=== PATIENT | male | born 1960 | race Caucasian/White ===

== ENCOUNTER 2023-06-29 12:56 | Outpatient (OUT) | payer MEDICARE, SELFPAY ==
[2023-06-29 13:38] LABS: Microalbumin Urine Random 2.3 mg/dL (<=30.0)
[2023-06-29 13:40] LABS: Estimated Average Glucose 171 mg/dL; Glycohemoglobin A1C 7.6 % (4.5-6.2)
[2023-06-29 13:55] LABS: Alanine Aminotransferase 35 U/L (16-63); Anion Gap 7.5; Calcium 9.4 mg/dL (8.5-10.1); Carbon Dioxide 33.1 mmol/L (21.0-32.0); Chloride 104 mmol/L (98-107); Chol HDL Ratio 2.4; Cholesterol 100 mg/dL (<=200); Estimated GFR (African America >60 (>=60); Estimated GFR (Non-African Ame >60 (>=60); Glucose 140 mg/dL (74-106); HDL Cholesterol 42 mg/dL (40-60); LDL Cholesterol Calculated 36.6 mg/dL; Potassium 4.6 mmol/L (3.5-5.1); Sodium 140 mmol/L (136-145); Triglycerides 107 mg/dL (<=150); VLDL CHOLESTEROL 21.4 mg/dL
[2023-06-29 14:22] LABS: Prostate Specific Antigen Scrn 1.07 ng/mL (<=4.00)
[2023-06-29 18:18] LABS: Basophils Absolute Auto 0.1 10^3/uL (0.0-0.1); Basophils Percent Auto 1.6 % (0.2-2.0); Eosinophils Absolute Auto 0.2 10^3/uL (0.0-0.7); Eosinophils Percent Auto 2.4 % (0.9-7.0); Hematocrit 50.5 % (42.0-54.0); Hemoglobin 16.5 g/dL (14.0-18.0); Immature Granulocytes Abs Auto 0.01 10^3/uL (0.00-0.03); Immature Granulocytes Pct Auto 0.2 % (0.0-0.5); Lymphocytes Absolute Auto 1.8 10^3/uL (1.2-3.8); Lymphocytes Percent Auto 29.2 % (20.5-60.0); Mean Corpuscular HGB Conc 32.7 g/dL (29.9-35.2); Mean Corpuscular Hemoglobin 30.2 pg (25.9-34.0); Mean Corpuscular Volume 92.5 fL (80.0-94.0); Mean Platelet Volume 11.2 fL (9.5-13.5); Monocytes Absolute Auto 0.5 10^3/uL (0.3-0.8); Monocytes Percent Auto 8.1 % (1.7-12.0); Neutrophils Absolute Auto 3.7 10^3/uL (1.4-6.5); Neutrophils Percent Auto 58.5 % (43.0-75.0); Platelet Count 237 10^3/uL (150-450); Red Blood Count 5.46 10^6/uL (4.70-6.10); Red Cell Distribution Width 13.3 % (11.0-15.0); White Blood Count 6.3 10^3/uL (4.0-11.0)
== END 2023-06-29 12:57 | disposition home or self-care (01) ==
LOC: LAB 13:01
PROVIDERS: PCP Internal Medicine; Visit Provider Internal Medicine
DX: E11.65 Type 2 diabetes mellitus with hyperglycemia (principal); E78.2 Mixed hyperlipidemia; Z79.899 Other long term (current) drug therapy; I50.22 Chronic systolic (congestive) heart failure; I11.0 Hypertensive heart disease with heart failure; Z12.5 Encounter for screening for malignant neoplasm of prostate
CPT/HCPCS: 36415; 80048; 80061; 82043; 83036; 84460; 85025; G0103

== ENCOUNTER 2023-07-21 16:47 | Outpatient (OUT) | payer MEDICARE, SELFPAY ==
--- NOTE | 2023-07-21 | XR_ITS ---
The [address] [address] Patient Name: TERRA ROSADO MRN: [id number] date: 1960 Sex: M Assigned Patient Location: [facility] Current Patient Location: RAD Accession/Order Number: [id number] Exam Date: 07/21/2023 17:10 Report Date: 07/21/2023 22:02 At the request of: YURIY RODRIGUEZ Procedure: XR chest 2V EXAM: XR chest 2V HISTORY: pleuritic chest pain R07.81 COMPARISON: 02/25/2018 TECHNIQUE: Upright PA and lateral chest x-ray FINDINGS: There has been interval surgery. Multiple sternal wire sutures and mediastinal clips are present as well as a cardiac device. The heart is at the upper limits of normal in size with slight prominence of the central pulmonary vasculature. No acute infiltrate, effusion or pneumothorax is identified. Degenerative changes are seen in the spine. XR/XR chest 2V IMPRESSION: No acute infiltrate or evidence of cardiac decompensation. There is been interval surgery with sternotomy, and hardware is now in place. The overall appearance of the chest is otherwise unchanged. Electronically authenticated by: RONI MALDONADO Date: 07/21/2023 22:02
== END 2023-07-21 16:48 | disposition home or self-care (01) ==
PROVIDERS: PCP Internal Medicine; Visit Provider Internal Medicine
DX: R07.81 Pleurodynia (principal)
CPT/HCPCS: 71046

== ENCOUNTER 2023-10-13 14:33 | Outpatient (OUT) | payer MEDICARE, SELFPAY ==
--- NOTE | 2023-10-13 14:39 | XR_ITS ---
The [address] [address] Patient Name: TERRA ROSADO MRN: [id number] date: 1960 Sex: M Assigned Patient Location: [facility] Current Patient Location: Accession/Order Number: [id number] Exam Date: 10/13/2023 14:45 Report Date: 10/14/2023 00:57 At the request of: YURIY RODRIGUEZ Procedure: XR knee LT 4V EXAM: Left knee. HISTORY: . acute pin of left knee M25.562 . COMPARISON: None. TECHNIQUE: 4 views FINDINGS: No fracture or dislocation of left knee is noted. Joint spaces well-maintained. Surrounding soft tissues are unremarkable. Vascular calcifications are noted posteriorly. XR/XR knee LT 4V IMPRESSION: Negative left knee. Electronically authenticated by: TRACEE CALDERON Date: 10/14/2023 00:57
== END 2023-10-13 14:34 | disposition home or self-care (01) ==
LOC: RAD 14:35
PROVIDERS: PCP Internal Medicine; Visit Provider Internal Medicine
DX: M25.562 Pain in left knee (principal)
CPT/HCPCS: 73564

== ENCOUNTER 2023-12-08 11:42 | Outpatient (OUT) | payer MEDICARE, SELFPAY ==
[2023-12-08 12:36] LABS: Estimated Average Glucose 192 mg/dL; Glycohemoglobin A1C 8.3 % (4.5-6.2)
== END 2023-12-08 11:43 | disposition home or self-care (01) ==
LOC: LAB 11:43
PROVIDERS: PCP Internal Medicine; Visit Provider Internal Medicine
DX: E11.65 Type 2 diabetes mellitus with hyperglycemia (principal)
CPT/HCPCS: 36415; 83036

== ENCOUNTER 2024-03-14 09:13 | Outpatient (OUT) | payer MEDICARE, SELFPAY ==
[2024-03-14 09:56] LABS: Estimated Average Glucose 177 mg/dL; Glycohemoglobin A1C 7.8 % (4.5-6.2)
== END 2024-03-14 09:14 | disposition home or self-care (01) ==
LOC: LAB 09:15
PROVIDERS: PCP Internal Medicine; Visit Provider Internal Medicine
DX: Z79.4 Long term (current) use of insulin (principal); E11.42 Type 2 diabetes mellitus with diabetic polyneuropathy; E11.65 Type 2 diabetes mellitus with hyperglycemia
CPT/HCPCS: 36415; 83036

== ENCOUNTER 2024-06-26 08:55 | Outpatient (OUT) | payer MEDICARE, SELFPAY ==
[2024-06-26 09:34] LABS: Basophils Absolute Auto 0.1 10^3/uL (0.0-0.1); Basophils Percent Auto 1.5 % (0.2-2.0); Eosinophils Absolute Auto 0.2 10^3/uL (0.0-0.7); Eosinophils Percent Auto 3.2 % (0.9-7.0); Hematocrit 50.1 % (42.0-54.0); Hemoglobin 16.5 g/dL (14.0-18.0); Immature Granulocytes Abs Auto 0.02 10^3/uL (0.00-0.03); Immature Granulocytes Pct Auto 0.3 % (0.0-0.5); Lymphocytes Absolute Auto 1.7 10^3/uL (1.2-3.8); Lymphocytes Percent Auto 28.9 % (20.5-60.0); Mean Corpuscular HGB Conc 32.9 g/dL (29.9-35.2); Mean Corpuscular Hemoglobin 31.9 pg (25.9-34.0); Mean Corpuscular Volume 96.7 fL (80.0-94.0); Mean Platelet Volume 10.4 fL (9.5-13.5); Monocytes Absolute Auto 0.5 10^3/uL (0.3-0.8); Monocytes Percent Auto 8.8 % (1.7-12.0); Neutrophils Absolute Auto 3.4 10^3/uL (1.4-6.5); Neutrophils Percent Auto 57.3 % (43.0-75.0); Platelet Count 191 10^3/uL (150-450); Red Blood Count 5.18 10^6/uL (4.70-6.10); Red Cell Distribution Width 12.6 % (11.0-15.0); White Blood Count 5.9 10^3/uL (4.0-11.0)
[2024-06-26 09:45] LABS: Microalbumin Urine Random 1.9 mg/dL (<=30.0)
[2024-06-26 09:45] LABS: Estimated Average Glucose 189 mg/dL; Glycohemoglobin A1C 8.2 % (4.5-6.2)
[2024-06-26 10:13] LABS: Alanine Aminotransferase 28 U/L (16-63); Albumin Level 3.8 g/dL (3.4-5.0); Alkaline Phosphatase 107 U/L (46-116); Anion Gap 9.3; Aspartate Amino Transferase 21 U/L (15-37); Bilirubin Total 0.9 mg/dL (0.2-1.0); Calcium 9.1 mg/dL (8.5-10.1); Carbon Dioxide 30.7 mmol/L (21.0-32.0); Chloride 105 mmol/L (98-107); Chol HDL Ratio 2.3; Cholesterol 104 mg/dL (<=200); Estimated GFR (African America >60 (>=60); Estimated GFR (Non-African Ame >60 (>=60); Globulin 3.8 g/dL; Glucose 73 mg/dL (74-106); HDL Cholesterol 45 mg/dL (40-60); LDL Cholesterol Calculated 44.4 mg/dL; Sodium 141 mmol/L (136-145); Total Protein 7.6 g/dL (6.4-8.2); Triglycerides 73 mg/dL (<=150); VLDL CHOLESTEROL 14.6 mg/dL
[2024-06-26 10:39] LABS: Prostate Specific Antigen Scrn 0.94 ng/mL (<=4.00)
== END 2024-06-26 08:56 | disposition home or self-care (01) ==
PROVIDERS: PCP Internal Medicine; Visit Provider Internal Medicine
DX: Z00.00 Encounter for general adult medical examination without abnormal findings (principal); E11.65 Type 2 diabetes mellitus with hyperglycemia; I10 Essential (primary) hypertension; I25.5 Ischemic cardiomyopathy; E78.2 Mixed hyperlipidemia; Z12.5 Encounter for screening for malignant neoplasm of prostate
CPT/HCPCS: 36415; 80053; 80061; 82043; 83036; 85025; G0103

== ENCOUNTER 2024-10-06 09:01 | Outpatient (OUT) | payer MEDICARE, SELFPAY ==
[2024-10-06 09:36] LABS: Estimated Average Glucose 166 mg/dL; Glycohemoglobin A1C 7.4 % (4.5-6.2)
== END 2024-10-06 09:02 | disposition home or self-care (01) ==
LOC: LAB 09:01
PROVIDERS: PCP Internal Medicine; Visit Provider Internal Medicine
DX: E11.65 Type 2 diabetes mellitus with hyperglycemia (principal); Z79.4 Long term (current) use of insulin
CPT/HCPCS: 36415; 83036

== ENCOUNTER 2025-03-08 09:56 | Outpatient (OUT) | payer MEDICARE, SELFPAY ==
--- OUTSIDE RECORDS SUMMARY | 2024-08-18 07:45 | XMS_ITS ---
Author Organization [facility] Address [address] [place] [phone] Care Team Providers Care Cotton Agent Name Role Phone Mel Youngblood Unavailable [phone] REASON FOR VISIT Comp. Exam Encounters Encounter Location Date Provider Diagnosis [facility] [address] [place], [place] [id number] 08/18/2024 Mel Youngblood Plan Of Treatment No Information Progress Notes * Jayy ROSADODOB:[birth year] (64 yo M)Acc No.[id number]:08/18/2024 Patient: Jayy SARMIENTO Provider: Jesus Youngblood DDS :1960 A ge:64 Y S ex:Male Date:08/18/2024 [facility] , [id number] Subjective: * Chief Complaints: * 1 . Comp. Exam. * Medical History: Objective: * Vitals: Assessment: Plan: * Treatment: * Billing Information: * Visit Code: * Procedure Codes: * Electronic signature of Ama Youngblood DDS on 03/08/2025 at 09:15 AM EDT Sign off status: Pending * Provider: Jesus Youngblood DDS Date: 10/18/2023 Generated for Camila nieto/Yanick/eTdionicioitting on: 0 03/08/2025 09:15 AM EDT
--- OUTSIDE RECORDS SUMMARY | 2025-03-01 13:29 | XMS_ITS ---
Author Name [employer] Organization [facility] Care Team Providers Care Installer Molding And Trim Name Role Phone Ramos Campbell Attending Unavailable Amira Arora Referring Unavailable [facility]ending Unavailable Amira Arora Referring Unavailable Nick Interiano Jr Attending Unavailable Amira Arora Referring Unavailable Nick Interiano Jr Attending Unavailable Amira Arora Referring Unavailable Ramos Campbell Attending Unavailable Nick Interiano Jr Attending Unavailable Nick Interiano Jr Referring Unavailable HAI DUMONT Referring Unavaila YURIY Kay Primary Care Unavailable HAI DUMONT Referring Unavaila YURIY Kay Primary Care Unavailable HAI DUMONT Admitting Unavaila HAI Barraza Attending Unavaila JOANNA Hart Attending Unavailable YURIY RODRIGUEZ Primary Care Unavailable JOANNA HUA Attending Unavailable JIMMIE RIVERA Attending Unavailable JIMMIE RIVERA Referring Unavailable YURIY RODRIGUEZ Primary Care Unavailable JIMMIE OSUNA Attending Unavailable JIMMIE RIVERA Referring Unavailable YURIY RODRIGUEZ Primary Care Unavailable PROBLEMS DATE TYPE CONDITION / CODE ATTENDING STATUS [facility] 12/12/2024 Working Diagnosis Puckering of macula, left eye / H35.372(ICD-10) Nick Interiano Jr [facility] 11/02/2024 Admitting Diagnosis Old myocardial infarction / I25.2(ICD-10) THAO [facility] 11/02/2024 Admitting Diagnosis Type 2 diabetes mellitus without complications (Multi) / [facility]11.9(ICD-10[facility] Admitting Diagnosis keno terminal operator (current) use of insulin (Multi) / Z79.4(ICD-10) [facility] 09/19/2024 Working Diagnosis Type 2 diab with prolif diab rtnop with macular edema, bi / E11.3513(ICD-10) Nick Interiano Jr [facility] 08/31/2024 Unknown cataract left ey e / UNK(Unknown) [facility]10[facility]2024 Unknown Encounter for ot her preprocedural examination / Z01.818(ICD-10) MARYAM [facility] 06/22/2024 Working Diagnosis 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, with long-term current use of insulin / E11.3513(ICD-10) Zeus Taylor [facility] 06/22/2024 Working Diagnosis Cataract, nuclear sclerotic, left eye / H25.12(ICD-10) Zeus Taylor [facility] 05/04/2024 Admitting Diagnosis Other specified health status / Z78.9(ICD-10) JIMMIE RIVERA [facility] 05/04/2024 Admitting Diagnosis Body mass index (BMI) 37.0-37.9, adult / Z68.37(ICD-10) JIMMIE RIVERA [facility] 10/25/2023 Admitting Diagnosis Mixed hyperlipidemia / E78.2(ICD-10) JIMMIE RIVERA [facility] 10/25/2023 Admitting Diagnosis Presence of aortocoronary bypass graft / Z95.1(ICD-10) JIMMIE RIVERA [facility] 10/25/2023 Admitting Diagnosis Atherosclerotic heart disease of [place] coronary artery without angina pectoris / I25.10(ICD-10) JIMMIE RIVERA [facility] PROCEDURES DATE CODE DESCRIPTION STATUS SOURCE 12/12/2024 83499(CPT-4) INJECTION EYE DRUG Completed [facility] 12/12/2024 83471(CPT-4) Ophthal DX Image Post Retina I And R Completed [facility] 12/12/2024 P4900TY(CPT-4) Vabysmo Prefilled Syringe Comple [facility] 12/12/2024 96777(CPT-4) OFFICE/OUTPATIEN T VISIT, EST Completed [facility] 09/19/2024 45065(CPT-4) Ophthal DX Image Post Retina I And R Completed [facility] 09/19/2024 D8206EN(CPT-4) Vabysmo Prefilled Syringe Comple [facility] 09/19/2024 1511555(CPT-4) Intravitreal Inj ection Of Phamacologic Agent Completed [facility] 07/11/2024 32866N(CPT-4) OCT No Charge Completed [facility] 07/11/2024 O7659ZF(CPT-4) Vabysmo Prefilled Syringe Comple [facility] 07/11/2024 0395226(CPT-4) Intravitreal Inj ection Of Phamacologic Agent Completed [facility] 06/22/2024 93193(CPT-4) Ophthal DX Image Post Retina I And R Completed [facility] 06/22/2024 18691(CPT-4) OFFICE/OUTPATIEN T VISIT, EST Completed [facility] 05/09/2024 70974(CPT-4) INJECTION EYE DRUG Completed [facility] 05/09/2024 26668(CPT-4) Ophthal DX Image Post Retina I And R Completed [facility] 05/09/2024 Q7507KL(CPT-4) Eylea 1mg Pre-fi lled Syringe Completed [facility] RESULTS ALLERGIES DATE TYPE / CODE NAME / CODE REACTION SEVERITY SOURCE 08/10/2024 Drug Class~NON-CBORD/41 8704207(SNOMED CT) PENICILLINS [facility] 10/12/2023 DRUG INGREDI/575032796( SNOMED CT) AMITRIPTYLINE Unknown [facility] 10/12/2023 Drug Class/819776473(SN OMED CT) PENICILLINS Unknown [facility] ENCOUNTERS ADMIT/DISCHARGE ACCOUNT NUMBER ADMITTING ENCOUNTER CLASS LOCATION SOURCE 03/01/2025 [id number] Ambulatory Building:Un known [facility] 12/12/2024 [id number] Ambulatory Building:Un known [facility] 11/02/2024/11/02/19 [id number] Ambulatory Building:[address] 09/19/2024 [id number] Ambulatory Building:Un known [facility] 08/31/2024/08/31/20 [id number] Inpatient Encounter Building:[facility] 08/31/2024/08/31/20 24 [id number] Inpatient Encounter Building: M_PERIOP [facility] 08/31/2024/08/31/20 24 [id number] HAI DUMONT HAMMOND Inpatient Encounter Building: M_PERIOPRoo m: POOLBed: [facility] 08/10/2024/08/10/20 [id number] Ambulatory Building:[facility] 08/10/2024/08/10/20 [id number] [facility] 07/11/2024 [id number] Ambulatory Building:Un known [facility] 06/22/2024 [id number] Ambulatory Building:Un known [facility] 05/09/2024 [id number] Ambulatory Building:Un known [facility] 05/04/2024/05/04/20 [id number] Ambulatory Building:[address] Ambulatory PAYERS ENCOUNTER GUARANTOR PAYER SUBSCRIBER SOURCE 03/01/2025 Terra PacheconeDOB: [id number] [facility] [address] [place] [address]Vff: (HP) Primary Insurance:Hum[employer] Medicare 46861Zjinbq Number: [id number] Date:3648-23-17Ywdj Name:[facility] Fransico [address] [place] [phone]: Terra SmithOB: [id number] [address] [address]Szq: (HP) [facility] 03/01/2025 Secondary Insurance:[employer] Days Chronic Disease FundPolicy Number: [id number] Date:2023-10-262025-10-17 Terra SmithOB: [id number] [address] [address]Zxx: (HP) [facility] 12/12/2024 Terra SmithOB: [address] [address]Ogt: (HP) Primary Insurance:Hum[employer] Medicare 132[address]Xevkzu Number: [id number] Date:9039-51-19Grmg Name:[address] [place] [phone]: Terra SmithOB: [id number] [address] [address]Fnh: (HP) [facility] 12/12/2024 Secondary Insurance:[employer] Days Chronic Disease FundPolicy Number: [id number] Date:2023-10-262025-10-17 Terra SmithOB: [id number] [facility] [address] [address]Nir: (HP) [facility] 11/02/2024 TERRA SMITHOB: [address] [address]Yen: (HP) Primary Insurance:HUMANA MEDICAREPolicy Number: [id number] Date:2022-10-18 TERRA SMITHOB: [id number] [address], [place] [address]Njo: (HP) [facility] 09/19/2024 Terra SmithOB: [facility] [address] [address]Htq: (HP) Primary Insurance:Hum[employer] Medicare 589[address]Mwpuec Number: [id number] Date:2643-96-98Yocs Name:[facility] [address] [place] [phone]: Terra SmithOB: [id number] [address] [address]Iwy: (HP) [facility] 09/19/2024 Secondary Insurance:[employer] Chronic Disease FundPolicy Number: [id number] Date:2023-10-262025-10-17 Terra SmithOB: [id number] [address] [address]Kni: (HP) [facility] 08/31/2024 TERRA SMITHOB: KVNG KINSEY [address] [place] [address]Nvp: (HP) Primary Insurance:HUMANA MEDICARE - [place] RESIDENTPolicy Number: [id number] Date:2022-10-18 TERRA SMITHOB: [id number] [address] [place] [address] [facility] 08/31/2024 TERRA SMITHOB: [address] [place] [address]Dvx: (HP) Primary Insurance:HUMANA [place]IC[place] - [place] RES[place]Policy Number: [id number] Date:2022-10-18 TERRA SMITHOB: [id number] [address] [place] [address] [facility] 08/31/2024 TERRA SMITHOB: KVNG [address] [facility] [place] [address]Ywm: (HP) Primary Insurance:HUMANA MEDICARE - [place] RES[place]Policy Number: [id number] Date:2022-10-18 TERRA SMITHOB: [id number] [address] [address] [facility] 08/10/2024 TERRA SMITHOB: [address], [place] [address]Swb: (HP) Primary Insurance:HUMANA MEDICARE - [place] RESIDENTPolicy Number: [id number] Date:2022-10-18 TERRA SMITHOB: [id number] [address] [place] [address] [facility] 08/10/2024 TERRA SMITHOB: [address] [address]Jbp: (HP) Primary Insurance:HUMANA MEDICARE - [place] RESIDENTPolicy Number: [id number] Date:2022-10-18 TERRA SMITHOB: [id number] [address] [place], [place] [address] [facility] 07/11/2024 Terra SmithOB: [address] [address]Tyn: (HP) Primary Insurance:Humana Medicare 693[address]Rzmdtz Number: [id number] Date:5477-90-12Ncco Name:[address] [place] [phone]: Terra SmithOB: [id number] [address] [address]Tkp: (HP) [facility] 07/11/2024 Secondary Insurance:[employer] Days Chronic Disease FundPolicy Number: [id number] Date:2023-10-262025-10-17 Terra SmithOB: [id number] [address] [address]Quf: (HP) [facility] 06/22/2024 Terra SmithOB: [address] [address]Jmk: (HP) Primary Insurance:Humana Medicare [address]Cptjbu Number: [id number] Date:0737-41-81Obhz Name:[address] [place] [phone]: Terra SmithOB: [id number] [address]Cmz: (HP) [facility] 06/22/2024 Secondary Insurance:Good Days Chronic Disease FundPolicy Number: [id number] Date:2023-10-262025-10-17 Terra SmithOB: [id number] [address] [address]Aeb: (HP) [facility] 05/09/2024 Terra SmithOB: [place], [place] [address]Hbi: (HP) Primary Insurance:Humana Medicare [address]Iezspg Number: [id number] Date:9663-30-55Xipl Name:[address] [place] [phone]: Terra SmithOB: [id number] [place], [place] [address]Cry: (HP) [facility] 05/09/2024 Secondary Insurance:Good Days Chronic Disease FundPolicy Number: [id number] Date:2023-10-262024-10-17 Terra SmithOB: [id number] [place], [place] [address]Rkf: (HP) [facility] 05/04/2024 TERRA WILSON: KVNG KINSEY [address] [place] [address]Egy: () Primary Insurance:HUMANA MEDICAREPolicy Number: [id number] Date:2022-10-18 TERRA IWLSON: [id number] [address], [place] [address]Xyu: () [facility]
--- OUTSIDE RECORDS SUMMARY | 2025-03-08 10:00 | XMS_ITS | Clinical Summary ---
Author Organization [employer] Address [id number] [address] [place] [address] Care Team Providers Care Rolling Mill Operator Helper Name Role Phone Greg Holland Eren LOPEZ Primary Care Provider [phone] Allergies Active Allergy Reactions Criticality Noted Date Comments Penicillins 08/10/2024 As a child, unsure of reaction Medications atorvastatin (LIPITOR) 80 mg tablet Take 1 tablet (80 mg total) by mouth in the morning. Active metoprolol tartrate (LOPRESSOR) 25 mg tablet Take 1 tablet (25 mg total) by mouth in the morning and 1 tablet (25 mg total) before bedtime. Active empagliflozin (JARDIANCE) 10 mg tablet tablet Take 1 tablet (10 mg total) by mouth in the morning. Active pregabalin (LYRICA) 100 mg capsule Take 1 capsule (100 mg total) by mouth 3 (three) times a day. Active aspirin 81 mg Take 1 tablet (81 mg total) by mouth in the morning. Active insulin glargine (LANTUS) 100 unit/mL injection Inject 0.25 mL (25 Units total) under the skin nightly. Active insulin aspart U-100 (NovoLOG) 100 unit/mL injection Inject 0.25 mL (25 Units total) under the skin in the morning and 0.25 mL (25 Units total) at noon and 0.25 mL (25 Units total) in the evening. Inject before meals. Active semaglutide (OZEMPIC) 0.25 mg or 0.5 mg(2 mg/1.5 mL) pen injector Inject 0.25 mg under the skin every 7 days. Wednesday Active acetaminophen (TYLENOL) 325 mg tablet Take 2 tablets (650 mg total) by mouth every 6 (six) hours as needed for pain. Active faricimab-svoa (VABYSMO) 6 mg/0.05 mL solution 0.05 mL (6 mg total) by intravitreal route every 60 (sixty) days. Active Active Problems No known active problems Family History Medical History Relation Name Comments Cancer Father liver Diabetes Father Heart disease Father Hyperlipidemia Father Hypertension Father Dementia Mother Relation Name Status Comments Father Mother Alive Social History Tobacco Use Types Packs/Day Years Used Date Smoking Tobacco: Never Smokeless Tobacco: Never Tobacco Cessation:Counseling Given: Not Answered Alcohol Use Standard Drinks/Week Comments Not Currently 0 (1 standard drink = 0.6 oz pur e alcohol) Childcare Answer Date Recorded Childcare Unknown 03/29/2019 Employment Answer Date Recorded Employment Unknown 03/29/2019 Sex and Gender Information Value Date Recorded Sex Assigned at Not on file Legal Sex Male 12:02 PM EDT Gender Identity Not on file Sexual Orientation Not on file Last Filed Vital Signs Vital Sign Reading Time Taken Comments Blood Pressure 143/79 08/31/2024 10:54 AM EST Pulse 63 08/31/2024 10:54 AM EST Temperature 36.2 C (97.1 F) 08/31/2024 8:51 AM EST Respiratory Rate 11 08/31/2024 10:54 AM EST Oxygen Saturation 97% 08/31/2024 10:54 AM EST Inhaled Oxygen Concentration - - Weight 104 kg (229 lb 4.5 oz) 08/31/2024 8:51 AM EST Height 170 cm (5' 6.93 ) 08/31/2024 8:51 AM EST Body Mass Index 35.99 08/31/2024 8:51 AM EST Plan of Treatment Health Maintenance Due Date Last Done Comments Depression Screening 1973 Adult BMI Follow Up Plan 1979 Zoster (Shingles) Vaccine (1 of 2) 2011 Influenza Vaccine 06/18/2025 Adult BMI Screening 08/31/2025 08/31/2024 Tobacco Screening 08/31/2025 08/31/2024 DTaP,Tdap and Td Vaccines (2 - Tdap) 11/29/202811/18 Medical Devices Implanted Type Area Admitting Representative Device Identifier Shelf Expiration Date Model / Serial / Lot Lens Iol 5 D +21 D Mod C Bicvx Sofport Sflx Ao 13mm Pmma Alla Rpl [id number] - [id number] - [id number] Implanted:Qty: 1 on 08/31/2024 by Cierra Denise MD at [facility] [employer] 03/17/2029 [id number] 21 .0 / [id number] / [id number] Insurance HU[employer]NA MEDICARE Care Teams Rolling Mill Operator Helper Relationship Specialty Start Date End Date Holland Garza DO [address] [place] [address] PCP - General Internal Medicine 08/10/24
--- OUTSIDE RECORDS SUMMARY | 2025-03-08 10:00 | XMS_ITS | Clinical Summary ---
Author Organization [facility] Address [address] [place] [address] Phone Care Team Providers Care Hand Touch Up Painter Name Role Phone Holland Garza Primary Care Provider [phone] Allergies Active Allergy Reactions Criticality Noted Date Comments Amitriptyline Unknown 10/12/2023 Penicillins Unknown 10/12/2023 Medications Jardiance 10 mg Take 1 tablet (10 mg) by mouth once daily. 3 Active aspirin 81 mg EC tablet Take 1 tablet (81 mg) by mouth once daily. Active insulin glargine (Lantus U-100 Insulin) 100 unit/mL injection Inject under the skin once every 24 hours. Take as directed per insulin instructions . Active insulin aspart (NovoLOG U-100 Insulin aspart) 100 unit/mL injection Inject under the skin 3 times a day before meals. Take as directed per insulin instructions . Active pregabalin (Lyrica) 100 mg capsule Take 1 capsule (100 mg) by mouth 2 times a day. Active gabapentin (Neurontin) 100 mg capsule Take 1 capsule (100 mg) by mouth 3 times a day. Active atorvastatin (Lipitor) 80 mg tabletIndications:M ixed hyperlipidemia Take 1 tablet (80 mg) by mouth once daily. 90 tablet 3 4 05/04/20 25 Active metoprolol tartrate (Lopressor) 25 mg tabletIndications:C oronary artery disease involving [place] coronary artery of [place] heart without angina pectoris Take 1 tablet (25 mg) by mouth 2 times a day. 180 tablet 3 4 07/18/20 25 Active Ozempic 0.25 mg or 0.5 mg(2 mg/1.5 mL) pen injector Inject 0.25 mg under the skin once a week. Active Active Problems Problem Noted Date Diagnosed Date Type 2 diabetes mellitus wit hout complication, with long-term current use of insulin 11/02/2024 History of myocardial infarction 11/02/2024 BMI 37.0-37.9, adult 05/04/2024 Never smoked tobacco 05/04/2024 History of left atrial appendage closure 024 Coronary artery disease invo lving [place] coronary artery of [place] heart without angina pectoris 10/25/2023 Hx of CABG 10/25/2023 Mixed hyperlipidemia 10/25/2023 Family History Medical History Relation Name Comments Liver cancer Father Relation Name Status Comments Father Social History Tobacco Use Types Packs/Day Years Used Date Smoking Tobacco: Never Smokeless Tobacco: Never Alcohol Use Standard Drinks/Week Comments Never 0 (1 standard drink = 0.6 oz pur e alcohol) Sex and Gender Information Value Date Recorded Sex Assigned at Male 05/05/2024 7:38 AM EDT Legal Sex Male 12:50 AM EST Gender Identity Male 05/05/2024 7:38 AM EDT Sexual Orientation Straight 05/05/2024 7: 38 AM EDT Last Filed Vital Signs Vital Sign Reading Time Taken Comments Blood Pressure 122/60 11/02/2024 9:19 AM EST Pulse 72 11/02/2024 9:19 AM EST Temperature - - Respiratory Rate 18 02/03/2023 10:38 AM EDT Oxygen Saturation 97% 02/03/2023 10:38 AM EDT Inhaled Oxygen Concentration - - Weight 109 kg (241 lb 6.4 oz) 11/02/2024 9:19 AM EST Height 170.2 cm (5' 7 ) 11/02/2024 9:19 AM EST Body Mass Index 37.81 11/02/2024 9:19 AM EST Plan of Treatment Upcoming Encounters Date Type Department Care Team (Late st Contact Info) Description 11/27/2025 10:30 AM EST [facility] [address] [facility] [address] [place] [id number] Guilherme Guevara, [address] [facility], [address] [place] [address] Health Maintenance Due Date Last Done Comments CT Colonography 1960 Colonoscopy 1960 Colorectal Cancer Screening 1960 Diabetes: Urine Protein Screening 1961 FIT-DNA (Cologuard) 1960 FIT 1960 HIV Screening 1960 Medicare Annual Wellness Visit (AWV) 1960 Sigmoidoscopy 1960 MMR Vaccines (1 of 1 - Standard series) 1962 Hepatitis C Screening 1979 Pneumococcal Vaccine (1 of 2 - PCV) 1980 DTaP/Tdap/Td Vaccines (1 - Tdap) 1983 Zoster Vaccines (1 of 2) 2011 RSV High Risk: (Elderly (60+) or Population) (1 - Risk 60-74 years 1-dose series) 2021 Diabetes: Retinopathy Screening 01/27/2022 01/27/2021 Diabetes: Hemoglobin A1C 03/31/2023 12/29/2022, 12/16 Lipid Panel 12/30/2023 12/29/2022 Echocardiogram 12/31/2023 12/30/2022 Creatinine Level 01/15/2024 01/14/2023, , 01/12/2023, Additional history exists Potassium Level 01/15/2024 01/14/2023, 12/17, 01/12/2023, Additional history exists COVID-19 Vaccine ( season) 2024 12/26/2020 Influenza Vaccine (Season Ended) 2025 HIB Vaccines Aged Out No longer eligi ble based on patient's age to complete this topic HPV Vaccines Aged Out No longer eligi ble based on patient's age to complete this topic Hepatitis A Vaccines Aged Out No long er eligible based on patient's age to complete this topic Hepatitis B Vaccines Aged Out No long er eligible based on patient's age to complete this topic IPV Vaccines Aged Out No longer eligi ble based on patient's age to complete this topic Meningococcal Vaccine Aged Out No sameer siobhan eligible based on patient's age to complete this topic Rotavirus Vaccines Aged Out No longer eligible based on patient's age to complete this topic Procedures Procedure Name Priority Date/Time Associated Diagnosis Comments RENAL FUNCTION PANEL Routine 01/14/2023 4:00 AM EDT ECHOCARDIOGRAM 12/30/2022 9:44 AM EDT HEMOGLOBIN A1C Routine 12/29/2022 6:50 PM EDT LIPID PANEL STAT 12/29/2022 6:50 PM EDT from Last 3 Months or Most Recently Relevant to Health Maintenance Results * Renal Function Panel (01/14/2023 4:00 AM EDT) Glucose CANCELED [facility] Comment:Result canceled by t he ancillary. Sodium [facility]CELED [facility] Comment:Result canceled by t he ancillary. Potassium [facility]CELED [facility] Comment:Result canceled by t he ancillary. Chloride [facility]CELED [facility] Comment:Result canceled by t he ancillary. Bicarbonate [facility]CELED [facility] Comment:Result canceled by t he ancillary. Anion Gap [facility]CELED [facility] Comment:Result canceled by t he ancillary. Urea Nitrogen [facility]CELED [facility] Comment:Result canceled by t he ancillary. Creatinine [facility]CELED [facility] Comment:Result canceled by t he ancillary. GFR Female [facility]CELED [facility] Comment: CALCULATIONS OF ESTIMATED GFR ARE PERFORMED USING THE 2020 CKD-EPI STUDY REFIT EQUATION WITHOUT THE RACE VARIABLE FOR THE IDMS-TRACEABLE CREATININE METHODS. https://jasn.asnjournals.org/content/early/ASN.2853640024 Result canceled by the ancillary. GFR MALE CANCELED [facility] Comment: CALCULATIONS OF ESTIMATED GFR ARE PERFORMED USING THE 2020 CKD-EPI STUDY REFIT EQUATION WITHOUT THE RACE VARIABLE FOR THE IDMS-TRACEABLE CREATININE METHODS. https://jasn.asnjournals.org/content/early/ASN.0193993042 Result canceled by the ancillary. Calcium [facility]CELED [facility] Comment:Result canceled by t he ancillary. Phosphorus CANCELED [facility] Comment: The performance characteristics of phosphorus testing in heparinized plasma have been validated by the individual laboratory site where testing is performed. Testing on heparinized plasma is not approved by the FDA; however, such approval is not necessary. Result canceled by the ancillary. Albumin CANCELED [facility] Comment:Result canceled by t he ancillary. Jolene Lechuga SAFETY R[employer]K LEAD-[employer] LAB BLOOD ORDERABLES John naa Result - Final [facility] [address] [place] [address] * Echocardiogram (12/30/2022 9:44 AM EDT) 12/30/2022 9:44 AM EDT Narrative SYNGO - 12/30/2022 11:03 AM EDT [facility], [address] [place] [address] and TRANSTHORACIC ECHOCARDIOGRAM REPORT Patient Name: TERRA Murguia Physician: [id number] Stuart Brito MD Study Date: 12/30/2022 Referring Physician: SKIP GARCIA MRN/PID: [id number] PCP: Accession/Order#: [id number] Department Location: [facility] Date of : 1960 Fellow: Gender: M Nurse: Admit Date: 12/29/2022 Tube Worker: Kd Milton [facility] Admission Status: Inpatient - Routine Additional Staff: Height: 170.18 cm CC Report to: [facility] Weight: 100.70 kg Study Type: Echocardiogram BSA: 2.11 m2 Blood Pressure: 158 /80 mmHg Diagnosis/ICD: R07.89-Other chest pain; I50.22-Chronic systolic (congestive) heart failure (CHF) Indication: Chest pain, CHF, CAD, triple vessel disease Procedure/CPT: Echo Complete w Full [id number] Patient History: Pertinent History: CAD/NSTEM,I s/p PCI to pLAD (12 years ago at [facility] per patient), T2DM, HLD, HTN. Study Detail: The following Echo studies were performed: M-Mode, 2D, Doppler and color flow. Technically challenging study due to poor acoustic windows and body habitus. Definity used as a contrast agent for endocardial border definition. Total contrast used for this procedure was 3.0 mL via IV push. PHYSICIAN INTERPRETATION: Left Ventricle: The left ventricular systolic function is normal, with an estimated ejection fraction of 60%. There are no regional wall motion abnormalities. The left ventricular cavity size is normal. Abnormal (paradoxical) septal motion, consistent with an intraventricular conduction delay. Spectral Doppler shows an impaired relaxation pattern of left ventricular diastolic filling. Left Atrium: The left atrium is normal in size. Right Ventricle: The right ventricle is normal in size. There is normal right ventricular global systolic function. Right Atrium: The right atrium is normal in size. Aortic Valve: The aortic valve is probably trileaflet. There is trivial aortic valve regurgitation. The peak instantaneous gradient of the aortic valve is 5.6 mmHg. The mean gradient of the aortic valve is 3.0 mmHg. Mitral Valve: The mitral valve is normal in structure. There is trace to mild mitral valve regurgitation. Tricuspid Valve: The tricuspid valve is structurally normal. There is trace tricuspid regurgitation. Pulmonic Valve: The pulmonic valve is not well visualized. There is trace pulmonic valve regurgitation. Pericardium: There is a trivial pericardial effusion. Aorta: The aortic root is normal. There is no dilatation of the ascending aorta. There is no dilatation of the aortic root. Systemic Veins: The inferior vena cava appears to be of normal size. Apparent liver cyst. CONCLUSIONS: 1. Poorly visualized anatomical structures due to suboptimal image quality. 2. Left ventricular systolic function is normal with a 60% estimated ejection fraction. 3. Spectral Doppler shows an impaired relaxation pattern of left ventricular diastolic filling. QUANTITATIVE DATA SUMMARY: LA VOLUME: Normal Ranges: LA Vol A4C: 69.2 ml (22+/-6mL/m2) LA Vol A2C: 54.2 ml LA Vol BP: 62.9 ml LA Vol Index A4C: 32.8ml/m2 LA Vol Index A2C: 25.6 ml/m2 LA Vol Index BP: 29.8 ml/m2 LA Area A4C: 23.1 cm2 LA Area A2C: 19.9 cm2 LA Major Lawrence A4C: 6.6 cm LA Major Lawrence A2C: 6.2 cm LA Volume Index: 29.8 ml/m2 RA VOLUME BY A/L METHOD: Normal Ranges: RA Area A4C: 16.1 cm2 AORTA MEASUREMENTS: Normal Ranges: Ao Sinus, d: 3.40 cm (2.1-3.5cm) Asc Ao, d: 3.34 cm (2.1-3.4cm) LV SYSTOLIC FUNCTION BY 2D PLANIMETRY (MOD): Normal Ranges: EF-A4C View: 65.7 % (>=55%) EF-A2C View: 56.1 % EF-Biplane: 61.7 % LV DIASTOLIC FUNCTION: Normal Ranges: MV Peak E: 0.60 m/s (0.7-1.2 m/s) MV Peak A: 0.79 m/s (0.42-0.7 m/s) E/A Ratio: 0.76 (1.0-2.2) MV e' 0.07 m/s (>8.0) MV lateral e' 0.08 m/s MV medial e' 0.06 m/s E/e' Ratio: 8.51 (<8.0) MITRAL VALVE: Normal Ranges: MV DT: 218 msec (150-240msec) AORTIC VALVE: Normal Ranges: AoV Vmax: 1.18 m/s (<=1.7m/s) AoV Peak P.6 mmHg (<20mmHg) AoV Mean P.0 mmHg (1.7-11.5mmHg) LVOT Max Ted: 0.95 m/s (<=1.1m/s) AoV VTI: 21.90 cm (18-25cm) LVOT VTI: 16.10 cm LVOT Diameter: 2.00 cm (1.8-2.4cm) AoV Area, VTI: 2.31 cm2 (2.5-5.5cm2) AoV Area,Vmax: 2.54 cm2 (2.5-4.5cm2) AoV Dimensionless Index: 0.74 RIGHT VENTRICLE: RV 1 3.8 cm RV 2 2.3 cm RV 3 8.3 cm TAPSE: 20.8 mm RV s' 0.18 m/s TRICUSPID VALVE/RVSP: Normal Ranges: IVC Diam: 1.70 cm PULMONIC VALVE: Normal Ranges: PV Max Ted: 1.1 m/s (0.6-0.9m/s) PV Max P.9 mmHg [id number] Stuart Brito MD Electronically signed on 12/30/2022 at 11:03:38 AM Final Procedure Note Stuart Brito MD - 12/30/2022 [facility], [address] [place] [address] and TRANSTHORACIC ECHOCARDIOGRAM REPORT Patient Name: TERRA ROSADO Reading Physician: [id number] Portillo MD Study Date: 12/30/2022 Referring Physician: SKIP GARCIA MRN/PID: [id number] PCP: Accession/Order#: [id number] Department Location: [facility] Date of : 1960 Fellow: Gender: M Nurse: Admit Date: 12/29/2022 Tube Worker: Kd Eric Admission Status: Inpatient - Routine Additional Staff: Height: 170.18 cm CC Report to: [facility] Weight: 100.70 kg Study Type:Echocardiogram BSA: 2.11 m2 Blood Pressure: 158 /80 mmHg Diagnosis/ICD: R07.89-Other chest pain; I50.22-Chronic systolic(congestive) heart failure (CHF) Indication: Chest pain, CHF, CAD, triple vessel disease Procedure/CPT: Echo Complete w Full [id number] Patient History: Pertinent History: CAD/NSTEM,I s/p PCI to pLAD (12 years ago at [facility] patient), T2DM, HLD, HTN. Study Detail: The following Echo studies were performed: M-Mode, 2D,Doppler and color flow. Technically challenging study due to poor acoustic windows and body habitus. Definity used as a contrast agent for endocardial border definition. Total contrast used for this procedure was 3.0 mL via IV push. PHYSICIAN INTERPRETATION: Left Ventricle: The left ventricular systolic function is normal, with anestimated ejection fraction of 60%. There are no regional wall motionabnormalities. The left ventricular cavity size is normal. Abnormal(paradoxical) septal motion, consistent with an intraventricularconduction delay. Spectral Doppler shows an impaired relaxation pattern ofleft ventricular diastolic filling. Left Atrium: The left atrium is normal in size. Right Ventricle: The right ventricle is normal in size. There is normalright ventricular global systolic function. Right Atrium: The right atrium is normal in size. Aortic Valve: The aortic valve is probably trileaflet. There is trivialaortic valve regurgitation. The peak instantaneous gradient of the aorticvalve is 5.6 mmHg. The mean gradient of the aortic valve is 3.0 mmHg. Mitral Valve: The mitral valve is normal in structure. There is trace tomild mitral valve regurgitation. Tricuspid Valve: The tricuspid valve is structurally normal. There istrace tricuspid regurgitation. Pulmonic Valve: The pulmonic valve is not well visualized. There is tracepulmonic valve regurgitation. Pericardium: There is a trivial pericardial effusion. Aorta: The aortic root is normal. There is no dilatation of the ascendingaorta. There is no dilatation of the aortic root. Systemic Veins: The inferior vena cava appears to be of normal size.Apparent liver cyst. CONCLUSIONS: 1. Poorly visualized anatomical structures due to suboptimal imagequality. 2. Left ventricular systolic function is normal with a 60% estimatedejection fraction. 3. Spectral Doppler shows an impaired relaxation pattern of leftventricular diastolic filling. QUANTITATIVE DATA SUMMARY: LA VOLUME: Normal Ranges: LA Vol A4C: 69.2 ml (22+/-6mL/m2) LA Vol A2C: 54.2 ml LA Vol BP: 62.9 ml LA Vol Index A4C: 32.8ml/m2 LA Vol Index A2C: 25.6 ml/m2 LA Vol Index BP: 29.8 ml/m2 LA Area A4C: 23.1 cm2 LA Area A2C: 19.9 cm2 LA Major Lawrence A4C: 6.6 cm LA Major Lawrence A2C: 6.2 cm LA Volume Index: 29.8 ml/m2 RA VOLUME BY A/L METHOD: Normal Ranges: RA Area A4C: 16.1 cm2 AORTA MEASUREMENTS: Normal Ranges: Ao Sinus, d: 3.40 cm (2.1-3.5cm) Asc Ao, d: 3.34 cm (2.1-3.4cm) LV SYSTOLIC FUNCTION BY 2D PLANIMETRY (MOD): Normal Ranges: EF-A4C View: 65.7 % (>=55%) EF-A2C View: 56.1 % EF-Biplane: 61.7 % LV DIASTOLIC FUNCTION: Normal Ranges: MV Peak E: 0.60 m/s (0.7-1.2 m/s) MV Peak A: 0.79 m/s (0.42-0.7 m/s) E/A Ratio: 0.76 (1.0-2.2) MV e' 0.07 m/s (>8.0) MV lateral e' 0.08 m/s MV medial e' 0.06 m/s E/e' Ratio: 8.51 (<8.0) MITRAL VALVE: Normal Ranges: MV DT: 218 msec (150-240msec) AORTIC VALVE: Normal Ranges: AoV Vmax: 1.18 m/s (<=1.7m/s) AoV Peak P.6 mmHg (<20mmHg) AoV Mean P.0 mmHg (1.7-11.5mmHg) LVOT Max Ted: 0.95 m/s (<=1.1m/s) AoV VTI: 21.90 cm (18-25cm) LVOT VTI: 16.10 cm LVOT Diameter: 2.00 cm (1.8-2.4cm) AoV Area, VTI: 2.31 cm2 (2.5-5.5cm2) AoV Area,Vmax: 2.54 cm2 (2.5-4.5cm2) AoV Dimensionless Index: 0.74 RIGHT VENTRICLE: RV 1 3.8 cm RV 2 2.3 cm RV 3 8.3 cm TAPSE: 20.8 mm RV s' 0.18 m/s TRICUSPID VALVE/RVSP: Normal Ranges: IVC Diam: 1.70 cm PULMONIC VALVE: Normal Ranges: PV Max Ted: 1.1 m/s (0.6-0.9m/s) PV Max P.9 mmHg [id number] Stuart Brito MD Electronically signed on 12/30/2022 at 11:03:38 AM Final us Skip Garcia MD CV ECHO PROCEDURES Final Resu lt SYNGO * Hemoglobin A1C (12/29/2022 6:50 PM EDT) Hemoglobin A1C CANCELED [facility] Comment: Diagnosis of Diabetes-Adults Non-Diabetic: < or = 5.6% Increased risk for developing diabetes: 5.7-6.4% Diagnostic of diabetes: > or = 6.5% . Monitoring of Diabetes Age (y) Therapeutic Goal (%) Adults: >18 <7.0 Pediatrics: 13-18 <7.5 7-12 <8.0 0- 6 7.5-8.5 [place] [employer]. Diabetes Care 33(S1), Oct 2009. Result canceled by the ancillary. Estimated Average Glucose CANCELED [facility] Comment:Result canceled by t he ancillary. HGB A1C CANCELED % [facility] Comment: Diagnosis of Diabetes-Adults Non-Diabetic: < or = 5.6% Increased risk for developing diabetes: 5.7-6.4% Diagnostic of diabetes: > or = 6.5% . Monitoring of Diabetes Age (y) Therapeutic Goal (%) Adults: >18 <7.0 Pediatrics: 13-18 <7.5 7-12 <8.0 0- 6 7.5-8.5 [place] [employer]. Diabetes Care 33(S1), Oct 2009. Result canceled by the ancillary. 12/29/2022 6:50 PM EDT us Skip Garcia MD LAB BLOOD ORDERABLES Edited R esult - Final [facility] [id number] [place], [place] [id number] * Lipid Panel (12/29/2022 6:50 PM EDT) Cholesterol 148 0 - 199 mg/dL [facility] Comment: . AGE DESIRABLE BORDERLINE HIGH HIGH 0-19 Y 0 - 169 170 - 199 >/= 200 20-24 Y 0 - 189 190 - 224 >/= 225 >24 Y 0 - 199 200 - 239 >/= 240 All ranges are based on fasting samples. Specific therapeutic targets will vary based on patient-specific cardiac risk. . Pediatric guidelines reference:Pediatrics 2011, 128(S5). Adult guidelines reference: NCEP ATPIII Guidelines, TIAGO 2001, 258:2486-97 . Venipuncture immediately after or during the administration of Metamizole may lead to falsely low results. Testing should be performed immediately prior to Metamizole dosing. HDL 46.2 mg/dL [facility] Comment: . AGE VERY LOW LOW NORMAL HIGH 0-19 Y < 35 < 40 40-45 ---- 20-24 Y ---- < 40 >45 ---- >24 Y ---- < 40 40-60 >60 . Cholesterol/HDL Ratio 3.2 [facility] Comment: REF VALUES DESIRABLE < 3.4 HIGH RISK > 5.0 LDL 81 0 - 99 mg/dL [facility] Comment: . NEAR BORD AGE DESIRABLE OPTIMAL HIGH HIGH VERY HIGH 0-19 Y 0 - 109 --- 110-129 >/= 130 ---- 20-24 Y 0 - 119 --- 120-159 >/= 160 ---- >24 Y 0 - 99 100-129 130-159 160-189 >/=190 . VLDL 20 0 - 40 mg/dL [facility] Triglycerides 102 0 - 149 mg/dL [facility] Comment: . AGE DESIRABLE BORDERLINE HIGH HIGH VERY HIGH 0 D-90 D 19 - 174 ---- ---- ---- 91 D- 9 Y 0 - 74 75 - 99 >/= 100 ---- 10-19 Y 0 - 89 90 - 129 >/= 130 ---- 20-24 Y 0 - 114 115 - 149 >/= 150 ---- >24 Y 0 - 149 150 - 199 200- 499 >/= 500 . Venipuncture immediately after or during the administration of Metamizole may lead to falsely low results. Testing should be performed immediately prior to Metamizole dosing. 12/29/2022 6:50 PM EDT 12/29/2022 7:14 PM EDT us Skip Garcia MD LAB BLOOD ORDERABLES Final Re sult [facility] [address] [place] [address] from Last 3 Months or Most Recently Relevant to Health Maintenance Insurance [facility] [employer] CHO[employer] Care Teams Hand Touch Up Painter Relationship Specialty Start Date End Date Holland Garza DO [address] [place] [address] PCP - General Internal Medicine 10/25/23
--- OUTSIDE RECORDS SUMMARY | 2025-03-08 10:00 | XMS_ITS | Encounter Summary ---
Author Organization [facility] Address [address] [place] [address] Phone Care Team Providers Care Engineering Director Name Role Phone Holland Garza DO Primary Care Provider [phone] Holland Garza DO Primary Care Provider [phone] Encounter Details Date Type Department Care Team (Late st Contact Info) Description 03/10/2023 Orders Only [facility] [address] [place] [address] Conversion, Onbase Social History Tobacco Use Types Packs/Day Years Used Date Smoking Tobacco: Never Assessed Sex and Gender Information Value Date Recorded Sex Assigned at Male 05/05/2024 7:38 AM EDT Legal Sex Male 12:50 AM EST Gender Identity Male 05/05/2024 7:38 AM EDT Sexual Orientation Straight 05/05/2024 7: 38 AM EDT documented as of this encounter Plan of Treatment Upcoming Encounters Date Type Department Care Team (Late st Contact Info) Description 11/27/2025 10:30 AM EST Office Visit [facility] [address] [facility] [address] [place] [address] Guilherme Guevara DO [address]03 [facility] [place] [address] Scheduled Orders Name Type Priority Associated Diagnoses Orde r Schedule OUTSIDE LAB SCAN Lab Ordered: 03/10/2023 documented as of this encounter Visit Diagnoses Not on filedocumented in this encounter Care Teams Engineering Director Relationship Specialty Start Date End Date Holland Garza DO PCP - General 01/25/23 10/24/23 Holland Garza DO [address] [place] [address] PCP - General Internal Medicine 10/25/23 documented as of this encounter
--- OUTSIDE RECORDS SUMMARY | 2025-03-08 10:00 | XMS_ITS | Encounter Summary ---
Author Organization [facility] Address [address] [place] [address] Phone Care Team Providers Care Through Freight Engineer Name Role Phone Holland Garza DO Primary Care Provider [phone] Encounter Details Date Type Department Care Team (Late st Contact Info) Description 03/14/2024 Scanned Document [facility] [address] [place] [id number] Scanning, Generic Provider Social History Tobacco Use Types Packs/Day Years [...] Description 11/27/2025 10:30 AM EST Office Visit [facility] 703 [facility] [address] [place] [address] Guilherme Guevara DO 703 [facility] [address], [address] [place], [place] [phone] documented as of this encounter Visit Diagnoses Not on filedocumented in this encounter Care Teams Through Freight Engineer Relationship Specialty Start Date End Date Holland Garza DO [address] [place] [address] PCP - General Internal Medicine 10/25/23 documented as of this encounter
--- OUTSIDE RECORDS SUMMARY | 2025-03-08 10:00 | XMS_ITS | Patient Health Record ---
Author Organization [facility] Address [address] [place], [place] [address] Care Team Providers Care Wind Turbine Installer Name Role Phone Mel Youngblood Unavailable [phone] Allergies Allergen (clinical drug ingredient) Drug/Non Drug Allergy documented on EMR Reaction Allergy Type Onset Date Status Penicillin Unknown Drug Allergy Active Reason For Referral No Information Medications Medication SIG (Take, Route, Frequency, Duration) Notes Start Date End Date Status Atorvastatin Calcium 80 MG Oral for 90 Days Active Metoprolol Tartrate 25 MG TAKE 1 TABLET BY MOUTH TWICE A DAY Oral for 90 Days Active NovoLOG FlexPen 100 UNIT/ML Subcutaneous for 90 Days Act aldo Lantus SoloStar 100 UNIT/ML Subcutaneous for 90 Days Act aldo FreeStyle Chris 3 Sensor - USE TO TEST H OME BLOOD SUGAR 4-6X DAILY for 84 Days Active Lantus SoloStar 100 UNIT/ML INJECT 30 UNITS UNDER THE SKIN ONCE EVERY EVENING FOR 90 DAYS Subcutaneous for 90 Days Active Pregabalin 100 MG Oral for 90 Days Active Vital Signs Heart Rate 51 /min 05/17/2024 Blood pressure diastolic 78 mm Hg 05/17/2024 Height-cm 170.18 cm 05/17/2024 Weight-kg 104.33 kg 05/17/2024 Height 5'7 in 05/17/2024 Blood pressure systolic 128 mm Hg 05/17/2024 Weight 230 lbs 05/17/2024 BMI 36.02 kg/m2 05/17/2024 Encounters Encounter Location Date Provider Diagnosis Dental Main [address] [place], [place] [id number] 05/17/2024 Mel Youngblood Encounter for scre ening for dental disorders Z13.84 ; Encounter for dental examination and cleaning with abnormal findings Z01.21 and Caries of dentin K02.62 Assessments Encounter Date Diagnosis (ICD Code) Assessment Notes Treatment Notes Treatment Clinical Notes Section Notes 05/17/2024 Encounter for screening for dental disorders (ICD-10 - Z13.84) 05/17/2024 Encounter for dental examination and cleaning with abnormal findings (ICD-10 - Z01.21) 05/17/2024 Caries of dentin (ICD-10 - K02.62) Plan Of Treatment No Information Insurance Providers Payer Name Payer Address Payer Phone Subscriber Number Group Number Insured Name Patient Relationship to Insured Coverage Start Date Coverage End Date [facility] [address] [address] [place], [place] [id number] Jayy Rosado Self - patient is the insured 4
[2025-03-08 10:26] LABS: Estimated Average Glucose 154 mg/dL
== END 2025-03-08 09:57 | disposition home or self-care (01) ==
LOC: LAB 09:58
PROVIDERS: PCP Internal Medicine; Visit Provider Internal Medicine
DX: Z79.4 Long term (current) use of insulin (principal); E11.65 Type 2 diabetes mellitus with hyperglycemia
CPT/HCPCS: 36415; 83036

== ENCOUNTER 2025-06-29 09:30 | Outpatient (OUT) | payer MEDICARE, SELFPAY ==
--- OUTSIDE RECORDS SUMMARY | 2024-08-18 07:45 | XMS_ITS ---
Author Organization [facility] Address [address] [place] [phone] Care Team Providers Care Enterprise Architect Manager Name Role Phone Mel Youngblood Unavailable [phone] REASON FOR VISIT Comp. Exam Encounters Encounter Location Date Provider Diagnosis [facility] [address] [place], [place] [phone] 08/18/2024 Mel Youngblood Plan Of Treatment No Information Progress Notes * Jayy ROSADODOB:[birth year] (65 yo M)Acc No.[id number]:08/18/2024 Patient: Jayy SARMIENTO Provider: Jesus Youngblood DDS :1960 A ge:64 Y S ex:Male Date:08/18/2024 [facility] , [id number] Subjective: * Chief Complaints: * 1 . Comp. Exam. * Medical History: Objective: * Vitals: Assessment: Plan: * Treatment: * Billing Information: * Visit Code: * Procedure Codes: * Electronic signature of Ama Youngblood DDS on 06/29/2025 at 09:35 AM EDT Sign off status: Pending * Provider: Jesus Youngblood DDS Date: 10/18/2023 Generated for Camila nieto/Yanick/eTdionicioitting on: 0 06/29/2025 09:35 AM EDT
--- OUTSIDE RECORDS SUMMARY | 2025-06-29 09:35 | XMS_ITS | Encounter Summary ---
Author Organization [facility] Address [address] [place] [address] Phone Care Team Providers Care Isotope Technologist Name Role Phone Holland Garza DO Primary Care Provider [phone] Encounter Details Date Type Department Care Team (Late st Contact Info) Description 03/14/2024 Scanned Document [facility] [address] [place] [id number] Scanning, Generic Provider Social History Tobacco Use [...] Description 11/27/2025 10:30 AM EST Office Visit [facility] [address] [facility] [address] [place] [address] Guilherme Guevara DO [address] [facility] [address] [place], [place] [id number] documented as of this encounter Visit Diagnoses Not on filedocumented in this encounter Care Teams Isotope Technologist Relationship Specialty Start Date End Date Holland Garza DO [address] [place] [address] PCP - General Internal Medicine 10/25/23 documented as of this encounter
--- OUTSIDE RECORDS SUMMARY | 2025-06-29 09:35 | XMS_ITS | Encounter Summary ---
Author Organization [facility] Address [address] [place] [address] Phone Care Team Providers Care Gamer Name Role Phone Holland Garza DO Primary Care Provider [phone] Holland Garza DO Primary Care Provider [phone] Encounter Details Date Type Department Care Team (Late st Contact Info) Description 03/10/2023 Orders Only [facility] [address] [place] [address] Conversion, Onbase Social History Tobacco Use Types [...] Description 11/27/2025 10:30 AM EST Office Visit [facility] [address] [facility] [address] [place] [address] Guilherme Guevara DO [address] [facility] [address], [address] [place] [address] Scheduled Orders Name Type Priority Associated Diagnoses Orde r Schedule OUTSIDE LAB SCAN Lab Ordered: 03/10/2023 documented as of this encounter Visit Diagnoses Not on filedocumented in this encounter Care Teams Gamer Relationship Specialty Start Date End Date Holland Garza DO PCP - General 01/25/23 10/24/23 Holland Garza DO [address] [place] [address] PCP - General Internal Medicine 10/25/23 documented as of this encounter
--- OUTSIDE RECORDS SUMMARY | 2025-06-29 09:35 | XMS_ITS | Clinical Summary ---
Author Organization [facility] Address [address] [place] [address] Care Team Providers Care Oil Field Tester Name Role Phone Holland Garza DO Primary Care Provider [phone] Allergies Active Allergy Reactions Criticality Noted Date Comments Amitriptyline Unknown 05/02/2020 Was unable to talk or stand Penicillins Unknown 04/25/2020 As a child, unsure of reaction Medications telmisartan (MIcarDIS) 20 MG tablet Take 20 mg by mouth Daily 03/23/2025 Active atorvastatin (Lipitor) 80 MG tablet Take 80 mg by mouth Daily Active metoprolol tartrate (Lopressor) 25 MG tablet Take 25 mg by mouth in the morning and 25 mg before bedtime. Active Jardiance 10 MG Take 10 mg by mouth Daily Active pregabalin (Lyrica) 100 MG capsule Take 100 mg by mouth in the morning and 100 mg in the evening and 100 mg before bedtime. Active Active Problems No known active problems Encounters Date Type Department Care Team Description 03/29/2025 11:30 AM EDT Office Visit [facility] [address] [facility] [address] [place] [phone] Jacques Monk DPM Metatarsal deformity, left (Primary Dx); Diabetes mellitus due to underlying condition with diabetic polyneuropathy, unspecified whether [facility] insulin use (HCC); Pain due to onychomycosis of toenails of both feet 03/29/2025 Bamboo flowsheet [facility] [address] [facility] [address] [place] [phone] Jacques Monk DPM 03/29/2025 Travel from Last 3 Months Family History Relation Name Status Comments Father Mother Social History Tobacco Use Types Packs/Day Years Used Date Smoking Tobacco: Unknown Tobacco Cessation:Counseling Given: Yes Sex and Gender Information Value Date Recorded Sex Assigned at Not on file Legal Sex Male 6:46 PM EDT Gender Identity Not on file Sexual Orientation Not on file Last Filed Vital Signs Vital Sign Reading Time Taken Comments Blood Pressure 126/66 03/28/2020 12:00 PM EDT Pulse - - Temperature - - Respiratory Rate 18 03/29/2025 11:36 AM EDT Oxygen Saturation - - Inhaled Oxygen Concentration - - Weight 108 kg (239 lb) 03/29/2025 11:36 AM EDT Height 170.2 cm (5' 7 ) 03/29/2025 11:36 AM EDT Body Mass Index 37.43 03/29/2025 11:36 AM EDT Plan of Treatment Not on file Insurance [employer] MEDICARE ADVANTAGE Care Teams Oil Field Tester Relationship Specialty Start Date End Date Holland Garza DO [address] [place] [address] PCP - General Internal Medicine 03/29/25
--- OUTSIDE RECORDS SUMMARY | 2025-06-29 09:36 | XMS_ITS | Clinical Summary ---
Author Organization [facility] Address [address] [place] [address] Phone Care Team Providers Care Greige Goods Marker Name Role Phone Holland Garza Primary Care Provider [phone] Allergies Active Allergy Reactions Criticality Noted Date [...] mouth once daily. 90 tablet 3 4 Active metoprolol tartrate (Lopressor) 25 mg tabletIndications:C oronary artery disease involving standing rock coronary artery of standing rock heart without angina pectoris Take 1 tablet (25 mg) by mouth 2 times a day. 180 tablet 3 4 Active Ozempic 0.25 mg or 0.5 mg(2 [...] closure 024 Coronary artery disease invo lving standing rock coronary artery of standing rock heart without angina pectoris 10/25/2023 Hx of [...] Description 11/27/2025 10:30 AM EST Office Visit [facility] [address] [facility] [address] [place] [address] Guilherme Guevara DO [address] [facility] [address] [place] [address] Health Maintenance Due Date Last Done Comments [...] 1980 DTaP/Tdap/Td Vaccines (1 - Tdap) 1983 PSA Prostate Cancer Screening 2011 Zoster Vaccines (1 of 2) 2011 RSV High Risk: (Elderly (60+) or Population) (1 - Risk 60-74 years 1-dose series) 2021 Diabetes: Retinopathy Screening 01/27/2022 01/27/2021 Diabetes: Hemoglobin A1C 03/31/2023 12/29/2022, 12/16 Lipid Panel 12/30/2023 12/29/2022 Echocardiogram 12/31/2023 12/30/2022 Creatinine Level 01/15/2024 01/14/2023, , 01/12/2023, Additional history exists Potassium Level 01/15/2024 01/14/2023, 12/17, 01/12/2023, Additional history exists COVID-19 Vaccine ( season) 2025 12/26/2020 Influenza Vaccine (#1) 2025 HIB Vaccines Aged Out No longer [...] RACE VARIABLE FOR THE IDMS-TRACEABLE CREATININE METHODS. https://jasn.asnjournals.org/content/early/ASN.9875379220 Result canceled by the ancillary. GFR MALE CANCELED [facility] Comment: CALCULATIONS OF ESTIMATED GFR ARE PERFORMED USING THE 2020 CKD-EPI STUDY REFIT EQUATION WITHOUT THE RACE VARIABLE FOR THE IDMS-TRACEABLE CREATININE METHODS. https://jasn.asnjournals.org/content/early/ASN.0861275056 Result canceled by the ancillary. Calcium CANCELED [facility] Comment:Result canceled by t he ancillary. Phosphorus CANCELED [facility] Comment: The performance characteristics of phosphorus testing in heparinized plasma have been validated by the individual laboratory site where testing is performed. Testing on heparinized plasma is not approved by the FDA; however, such approval is not necessary. Result canceled by the ancillary. Albumin CANCELED [facility] Comment:Result canceled by t he ancillary. us Jolene Lechuga MIXING TUMBLER OPERATOR-PHYSICIAN PEDIATRICIAN LAB BLOOD ORDERABLES John naa Result - Final [facility] [address] [place] [address] * Echocardiogram (12/30/2022 9:44 AM EDT) 12/30/2022 9:44 AM EDT Narrative SYNGO - 12/30/2022 11:03 AM EDT [facility], [address] [place] [address] and TRANSTHORACIC ECHOCARDIOGRAM REPORT Patient Name: TERRA Murguia Physician: [id number] Stuart Brito MD Study Date: 12/30/2022 Referring Physician: SKIP GARCIA MRN/PID: [id number] PCP: Accession/Order#: [id number] Department Location: [facility] Date of : 1960 Fellow: Gender: M Nurse: Admit Date: 12/29/2022 Sap Gatherer: Kd Milton [facility] Admission Status: Inpatient - Routine Additional Staff: Height: 170.18 cm CC Report to: [facility] Weight: 100.70 kg Study Type: Echocardiogram BSA: 2.11 m2 Blood Pressure: 158 /80 mmHg Diagnosis/ICD: R07.89-Other chest pain; I50.22-Chronic systolic (congestive) heart failure (CHF) Indication: Chest pain, CHF, CAD, triple vessel disease Procedure/CPT: Echo Complete w Full [id number] Patient History: Pertinent History: CAD/NSTEM,I s/p PCI to pLAD (12 years ago at [facility] per patient), T2DM, HLD, HTN. Study [...] LA Area A2C: 19.9 cm2 [place] A4C: 6.6 cm LA [place] A2C: 6.2 cm LA Volume Index: 29.8 [...] 1.1 m/s (0.6-0.9m/s) PV Max P.9 mmHg [id number] Stuart Brito MD Electronically signed on 12/30/2022 at 11:03:38 AM Final Procedure Note Stuart Brito MD - 12/30/2022 [facility], [address] [place] [address] and TRANSTHORACIC ECHOCARDIOGRAM REPORT Patient Name: TERRA ROSADO Reading Physician: [id number] Bandar LONG Study Date: 12/30/2022 Referring Physician: SKIP GARCIA MRN/PID: [id number] PCP: Accession/Order#: [id number] Department Location: [facility] Date of : 1960 Fellow: Gender: M Nurse: Admit Date: 12/29/2022 Sap Gatherer: Kd Eric Admission Status: Inpatient - Routine Additional Staff: Height: 170.18 cm CC Report to: [facility] Weight: 100.70 kg Study Type:Echocardiogram BSA: 2.11 m2 Blood Pressure: 158 /80 mmHg Diagnosis/ICD: R07.89-Other chest pain; I50.22-Chronic systolic(congestive) heart failure (CHF) Indication: Chest pain, CHF, CAD, triple vessel disease Procedure/CPT: Echo Complete w Full [id number] Patient History: Pertinent History: CAD/NSTEM,I s/p PCI to pLAD (12 years ago at [facility] patient), T2DM, HLD, HTN. Study Detail: The [...] LA Area A2C: 19.9 cm2 [place] A4C: 6.6 cm LA [place] A2C: 6.2 cm LA Volume Index: 29.8 [...] 1.1 m/s (0.6-0.9m/s) PV Max P.9 mmHg [id number] Stuart Brito MD Electronically signed on 12/30/2022 at 11:03:38 AM Final us Skip Garcia MD CV ECHO PROCEDURES Final Resu lt SYNGO * Hemoglobin A1C (12/29/2022 6:50 PM EDT) Hemoglobin A1C CANCELED [facility] Comment: Diagnosis of Diabetes-Adults Non-Diabetic: < or = 5.6% Increased risk for developing diabetes: 5.7-6.4% Diagnostic of diabetes: > or = 6.5% . Monitoring of Diabetes Age (y) Therapeutic Goal (%) Adults: >18 <7.0 Pediatrics: 13-18 <7.5 7-12 <8.0 0- 6 7.5-8.5 [place] [employer]. Diabetes Care 33(S1), Oct 2009. Result canceled by the ancillary. Estimated Average Glucose CANCELED [facility] Comment:Result canceled by t he ancillary. HGB A1C CANCELED % [facility] Comment: Diagnosis of Diabetes-Adults Non-Diabetic: < or = 5.6% Increased risk for developing diabetes: 5.7-6.4% Diagnostic of diabetes: > or = 6.5% . Monitoring of Diabetes Age (y) Therapeutic Goal (%) Adults: >18 <7.0 Pediatrics: 13-18 <7.5 7-12 <8.0 0- 6 7.5-8.5 [place] [employer]. Diabetes Care 33(S1), Oct 2009. Result canceled by the ancillary. 12/29/2022 6:50 PM EDT us Skip Garcia MD LAB BLOOD ORDERABLES Edited R esult - Final [facility] [id number] [id number] * Lipid Panel (12/29/2022 6:50 PM EDT) Cholesterol 148 0 - 199 mg/dL [facility] Comment: . AGE DESIRABLE BORDERLINE HIGH [...] prior to Metamizole dosing. HDL 46.2 mg/dL [facility] Comment: . AGE VERY LOW LOW NORMAL HIGH 0-19 Y < 35 < 40 40-45 ---- 20-24 Y ---- < 40 >45 ---- >24 Y ---- < 40 40-60 >60 . Cholesterol/HDL Ratio 3.2 [facility] Comment: REF VALUES DESIRABLE < 3.4 HIGH RISK > 5.0 LDL 81 0 - 99 mg/dL [facility] Comment: . NEAR BORD AGE DESIRABLE OPTIMAL HIGH HIGH VERY HIGH 0-19 Y 0 - 109 --- 110-129 >/= 130 ---- 20-24 Y 0 - 119 --- 120-159 >/= 160 ---- >24 Y 0 - 99 100-129 130-159 160-189 >/=190 . VLDL 20 0 - 40 mg/dL [facility] Triglycerides 102 0 - 149 mg/dL [facility] Comment: . AGE DESIRABLE BORDERLINE HIGH [...] MD LAB BLOOD ORDERABLES Final Re sult [facility] [address] [place] [address] from Last 3 Months or Most Recently Relevant to Health Maintenance Insurance [facility] GOLD CHOICE Care Teams Greige Goods Marker Relationship Specialty Start Date End Date [place] [address] PCP - General Internal Medicine 10/25/23
--- OUTSIDE RECORDS SUMMARY | 2025-06-29 09:36 | XMS_ITS | Clinical Summary ---
Author Organization [facility] Address [id number] [address] [place] [address] Care Team Providers Care Tab Builder Name Role Phone GregHolland Primary Care Provider [phone] Allergies Active Allergy Reactions Criticality Noted Date [...] Tdap) 11/29/202811/18 Medical Devices Implanted Type Area Client Project Coordinator Device Identifier Shelf Expiration Date Model / Serial / Lot Lens Iol 5 D +21 D Mod C Bicvx Sofport Sflx Ao 13mm Pmma Alla Rpl [id number] - [id number] - [id number] Implanted:Qty: 1 on 08/31/2024 by Cierra Denise MD at [facility] [employer] 03/17/2029 [id number] 21 .0 / [id number] / [id number] Insurance [employer] MEDICARE Care Teams Tab Builder Relationship Specialty Start Date End Date Holland Garza DO [address] [place] [address] PCP - General Internal Medicine 08/10/24
--- OUTSIDE RECORDS SUMMARY | 2025-06-29 09:36 | XMS_ITS | Patient Health Record ---
Author Organization [facility] Address [address] [place], [place] [address] Care Team Providers Care Candy Vendor Name Role Phone Mel Youngblood Unavailable [phone] Allergies Allergen (clinical drug ingredient) Drug/Non Drug Allergy documented on EMR Reaction Allergy Type Onset Date Status Penicillin Unknown Drug Allergy Active Reason For Referral No Information Medications Medication SIG (Take, Route, Frequency, Duration) Notes Start Date End Date Status Atorvastatin Calcium 80 MG Oral; Duration: 90 Days Active Metoprolol Tartrate 25 MG TAKE 1 TABLET BY MOUTH TWICE A DAY Oral; Duration: 90 Days Active NovoLOG FlexPen 100 UNIT/ML Subcutaneous ; Duration: 90 Days Active Lantus SoloStar 100 UNIT/ML Subcutaneous ; Duration: 90 Days Active FreeStyle Chris 3 Sensor - USE TO TEST H OME BLOOD SUGAR 4-6X DAILY; Duration: 84 Days Active Lantus SoloStar 100 UNIT/ML INJECT 30 UN ITS UNDER THE SKIN ONCE EVERY EVENING FOR 90 DAYS Subcutaneous; Duration: 90 Days Active Pregabalin 100 MG Oral; Duration: 90 Days Active Plan Of Treatment No Information Insurance Providers Payer Name Payer Address Payer Phone Subscriber Number Group Number Insured Name Patient Relationship to Insured Coverage Start Date Coverage End Date [facility] [address] [address] [place], [place] [id number] [phone] [id number] Jayy Rosado Self - patient is the insured 4
[2025-06-29 10:41] LABS: Alanine Aminotransferase 35 U/L (16-63); Albumin Globulin Ratio 1.1; Albumin Level 4.1 g/dL (3.4-5.0); Alkaline Phosphatase 112 U/L (46-116); Anion Gap 13.8; Aspartate Amino Transferase 21 U/L (15-37); Blood Urea Nitrogen 27.0 mg/dL (7.0-18.0); Calcium 9.2 mg/dL (8.5-10.1); Carbon Dioxide 28.4 mmol/L (21.0-32.0); Chloride 103 mmol/L (98-107); Cholesterol 83 mg/dL (<=200); Estimated GFR (African America >60 (>=60 mL/min/1.73m^2); Estimated GFR (Non-African Ame >60 (>=60 mL/min/1.73m^2); Globulin 3.6 g/dL; Glucose 132 mg/dL (74-106); HDL Cholesterol 39 mg/dL (40-60); Potassium 5.2 mmol/L (3.5-5.1); Sodium 140 mmol/L (136-145); Total Protein 7.7 g/dL (6.4-8.2); Triglycerides 59 mg/dL (<=150); VLDL CHOLESTEROL 11.8 mg/dL
[2025-06-29 10:46] LABS: Hematocrit 47.4 % (42.0-54.0); Hemoglobin 15.6 g/dL (14.0-18.0); Immature Granulocytes Abs Auto 0.01 10^3/uL (0.00-0.03); Immature Granulocytes Pct Auto 0.2 % (0.0-0.5); Lymphocytes Absolute Auto 1.4 10^3/uL (1.2-3.8); Mean Corpuscular HGB Conc 32.9 g/dL (29.9-35.2); Mean Corpuscular Hemoglobin 31.7 pg (25.9-34.0); Mean Corpuscular Volume 96.3 fL (80.0-94.0); Platelet Count 210 10^3/uL (150-450); Red Blood Count 4.92 10^6/uL (4.70-6.10); White Blood Count 6.4 10^3/uL (4.0-11.0)
[2025-06-29 12:10] LABS: Microalbum Creatinine Ratio Ur 14.4 mg/g (0.0-29.9)
== END 2025-06-29 09:31 | disposition home or self-care (01) ==
LOC: LAB 09:33
PROVIDERS: PCP Internal Medicine; Visit Provider Internal Medicine
DX: Z00.00 Encounter for general adult medical examination without abnormal findings (principal); E78.2 Mixed hyperlipidemia; I10 Essential (primary) hypertension; E11.42 Type 2 diabetes mellitus with diabetic polyneuropathy; E11.65 Type 2 diabetes mellitus with hyperglycemia; Z79.4 Long term (current) use of insulin; Z12.5 Encounter for screening for malignant neoplasm of prostate
CPT/HCPCS: 36415; 80053; 80061; 82043; 82570; 83036; 85025; G0103

== ENCOUNTER 2025-07-04 07:42 | Outpatient (OUT) | payer MEDICARE, SELFPAY ==
--- NOTE | 2025-07-04 07:30 | NM_ITS ---
Patient Name: TERRA ROSADO MR#: [id number] : 1960 Exam Date: 07/04/2025 Ordering Doctor: DR YURIY RODRIGUEZ D.O. RADIOLOGY REPORT PROCEDURE: NM SLOANE PERF SPECT REST STR COMPARISON: None. INDICATIONS: ISCHEMIC CARDIOMYOPATHY, CHRONIC SYSTOLIC HEART FAILURE TECHNIQUE: Exam Description: Stress/Rest one day protocol gated SPECT Rest Imagin.5 mCi Tc-99m Cardiolite IV on 07/04/2025 Stress Imaging 30.5 mCi Tc-99m Cardiolite IV on 07/04/2025 Exercise Protocol: 0.4 mg Lexiscan given IV Heart Rate (bpm): Rest: 67 Max: 115 PMHR: 73 Blood Pressure: Rest: 136/74 Max: 140/78 Symptoms: Rest and peak stress ECG findings were pending, and the exercise portion of the study was pending per attending physician [facility]. For more details, please see separate cardiac stress test report. FINDINGS: QUALITY OF STUDY: Good PERFUSION DEFECT: LOCATION: Inferoseptal SIZE: Small SEVERITY: Moderate TYPE: Reversible WALL MOTION: Normal wall motion LV SIZE: 69 mL. TID / TCD: 0.9 LVEF: Calculated EF 70%. SUMMARY: Myocardial perfusion imaging study is abnormal CONCLUSION: 1. Myocardial perfusion is abnormal 2. An inferoseptal reversible perfusion defect is seen suggestive of ischemia 3. Global left ventricular systolic function is normal; EF 70% 4. No significant cardiac ischemic dilatation Dictated by: Clara العراقي M.D. on 07/05/2025 at 09:22 Approved by: Clara العراقي M.D. on 07/05/2025 at 09:25
--- NOTE | 2025-07-04 09:35 | PC.NURSE ---
Nursing Note Cardiac Stress Test Reviewed: Medication, allergies and patient history reviewed. Stress Test: [ ] Patient tolerated stress test well. [x ] Patient unable to tolerate walking on treadmill. Switched to Lexiscan stress test. [x ] No chest pain noted per patient [ ] Chest pain that resolved prior to leaving stress lab. [ ] No dyspnea noted. [x ] Dyspnea that resolved prior to leaving stress lab. [x ] Patient left stress lab asymptomatic and hemodynamically stable. [ ] Patient taken to the Emergency Room due to non-resolving symptoms following stress test. [ ] Patient achieved target heart rate. [x ] Patient unable to achieve target heart rate. [ ] Aminophylline administered as reversal agent to Lexiscan (Regadenoson). [ ] Nitro administered. Nursing Comments:Pt attempted TM test but unable to reach target HR. Switched to Lexiscan test and tolerated well. pt did have some dizziness and lightheaded but these subsided for the most part at time of leaving the stress lab. Pt had no chest pain or SOB. Taken to cafeteria by wheelchair for breakfast prior to second set of images.
[2025-07-04] MEDS: REGADENOSON 0.4 MG/5 ML SYRINGE IV (09:41)
--- NOTE | 2025-07-04 11:00 | CA_ITS ---
Patient Name: TERRA ROSADO MR#: [id number] : 1960 Exam Date: 07/04/2025 Ordering Doctor: DR YURIY RODRIGUEZ D.O. ECHOCARDIOGRAM REPORT PROCEDURE: CA ECHO DOPPLER COMPLETE INDICATIONS: Ischemic cardiomyopathy, chronic systolic heart failure, PA, CABGx4, hypertension, diabetes COMPARISON: None. DESCRIPTION: COMPLETE ECHOCARDIOGRAM Real-time transthoracic echocardiography with 2D, M-mode, spectral and color flow Doppler performed. QUALITY: Technical quality was good. LEFT VENTRICLE: Normal chamber size. Thickened septal wall. Systolic function is normal. LV EF: Normal left ventricular ejection fraction, (55%). DIASTOLIC: Normal diastolic function. ATRIAL SEPTUM: Visually appears intact. LEFT ATRIUM: Normal chamber size. RIGHT ATRIUM: Normal chamber size. RIGHT VENTRICLE: Normal chamber size. Normal right ventricular systolic function. TRICUSPID VALVE: Normal mobility and thickness. No stenosis with trivial regurgitation. No evidence of pulmonary hypertension. RVSP 29 mmHg MITRAL VALVE: Normal mobility and thickness. No evidence of mitral valve stenosis. There is no mitral annular calcification. No mitral regurgitation. AORTIC VALVE: Normal trileaflet appearance. Normal leaflet mobility. No evidence of aortic valve stenosis. Mild calcification on the left coronary cusp. No aortic regurgitation. AORTIC ROOT: Normal diameter and appearance, measuring 3.5 cm. Ascending aorta is mildly dilated (3.8 cm). PULMONIC VALVE: Normal thickness and mobility. No stenosis. No regurgitation. PERICARDIUM: No evidence of pericardial effusion. IVC: Collapses with inspiration. IVC is normal in size. PLEURA: CONCLUSION: 1. Normal ventricular size and systolic function. LVEF is estimated at 55%. 2. No significant valvular dysfunction. 3. Normal right-sided pressures. 4. Mildly dilated ascending aorta measuring 3.8 cm. Adult Echocardiography Procedure Report Left Ventricle LVEDD (3.7 - 5.6 cm): 4.57 cm LVESD (2.2 - 4.0 cm): 2.90 cm LVIVS thickness (0.6 - 1.2 cm): 1.22 cm LVPW thickness (0.5 - 1.0 cm): 1.10 cm e': 0.09 m/s E - e': 3.80 LVOT Max Gradient: 4.31 mm[Hg] LVOT Area (cm2): 1.04 m/s Peak Velocity (LVOT): 1.04 m/s Mean Velocity (LVOT): 0.74 m/s LVOT Diameter 2.04 cm Left Atrium LA Volume Index (2D A2C): 23.35 ml/m2 Left Atrium Systolic Dimension: 4.26 cm Mitral Valve MV E to A Ratio: 0.71 Mitral Valve A-Wave Peak Velocity: 0.49 m/s Mitral Valve E-Wave Peak Velocity: 0.35 m/s Right Ventricle Aorta AO Root Diam: 3.53 cm Ascending Ao Diam: 3.72 cm Aortic Valve AoV Area (Peak Ted): 2.88 cm2, 2.88 cm2 AoV Area (VTI): 2.38 cm2, 2.38 cm2 Peak Velocity(Antegrade Flow): 1.17 m/s Peak Gradient(Antegrade Flow): 5.52 mm[Hg] Mean Velocity(Antegrade Flow): 0.70 m/s Mean Gradient(Antegrade Flow): 2.41 mm[Hg] Velocity Time Integral: 25.52 cm Tricuspid Valve Peak Velocity (Regurgitant Flow): 2.54 m/s Pulmonic Valve Peak Gradient: 5.66 mm[Hg], 6.73 mm[Hg] Right Atrium Right Atrium Systolic Pressure: 49.57 ml, 49.57 ml Dictated by: Stuart Aparicio M.D. on 07/04/2025 at 18:29 Approved by: Stuart Aparicio M.D. on 07/04/2025 at 18:35
--- NOTE | 2025-07-04 12:55 | PM.STRESS ---
Stress Test Stress Test Requesting physician: Holland Garza Procedure: Lexiscan stress test General Information: Reason for Stress Test: [congestive heart failure and chest pain] Cardiac History and Risk Factors: [Hypertension, CAD, MD] Stress Test: Protocol: [lexiscan stress test] Exercise Capacity: [unable to perform exercise] Blood Pressure Response: [NA, lexiscan performed] Rhythm: [normal sinus] ST - Response: [non diagnostic STT wave changes anterior leads] Patient Response: [shortness of breath without chest pain] Interpretation: During lexiscan infusion, non-diagnostic anterior STT wave changes seen which resolved in recovery. No chest pain occurred.
== END 2025-07-04 07:43 | disposition home or self-care (01) ==
LOC: NM 07:43
PROVIDERS: PCP Internal Medicine; Visit Provider Internal Medicine
DX: I25.5 Ischemic cardiomyopathy (principal); I50.22 Chronic systolic (congestive) heart failure; R07.9 Chest pain, unspecified
CPT/HCPCS: 78452; 93017; 93306; A9500; J2785